=== PATIENT | female | born 1970 | race African-American/Black ===

== ENCOUNTER 2023-01-06 07:49 | Day surgery (SDC) | payer OTHER ==
[~2023-01-06] VITALS: Ht 177.8 cm; Wt 131.5 kg
[2023-01-06] MEDS ORDERED: LIDOCAINE 2% 100 MG/5 ML UJET TP ONE (11:17)
[2023-01-06] MEDS ORDERED: fentaNYL citrate 0.05 MG/ML VIAL ONE (11:17)
[2023-01-06] MEDS ORDERED: fentaNYL citrate 0.05 MG/ML VIAL IVP ONE (11:50)
== END 2023-01-06 12:20 | disposition home or self-care (01) ==
LOC: MOR 07:49 → MMU 07:52 → MOR 12:20
PROVIDERS: ATTEND Internal Medicine Gastroenterology
DX: Z12.11 Encounter for screening for malignant neoplasm of colon (principal); K63.5 Polyp of colon; K57.30 Diverticulosis of large intestine without perforation or abscess without bleeding; Z80.0 Family history of malignant neoplasm of digestive organs; E11.9 Type 2 diabetes mellitus without complications; F32.A Depression, unspecified; F17.210 Nicotine dependence, cigarettes, uncomplicated
CPT/HCPCS: 45385; J3010